=== PATIENT | male | born 1935 | race Caucasian/White ===

== ENCOUNTER 2018-02-17 21:37 | Emergency (ER) | payer MEDICARE ==
[~2018-02-17] VITALS: Ht 327.7 cm; Wt 89.4 kg
[~2018-02-17 21:37] MED LIST: CETIRIZINE HCL10 MG PO; CLONIDINE HCL0.1 MG PO; CO Q-10200 MG PO; FINASTERIDE5 MG PO; INSULIN SC; METFORMIN HCL500 MG PO; PIOGLITAZONE HC15 MG PO
--- OUTSIDE RECORDS SUMMARY | 2018-02-17 21:39 | XMS REPORT | Clinical Summary ---
Author Author [facility] Address Unknown Phone Unavailable Care Team Providers Care Futures Trader Name Role Phone Sharpless PCP Allergies No Known Allergies Medications End Date Status Medication Sig Dispensed Refills Start Date Active cloNIDine HCl (CATAPRES) Take 0.1 mg 0 0.1 MG tablet by mouth 2 (two) times daily. Active SITagliptin (JANUVIA) 25 Take 25 mg by 0 MG tablet mouth daily. Active amLODIPine (NORVASC) 10 Take 10 mg by 0 MG tablet mouth daily. Active tamsulosin (FLOMAX) 0.4 Take 0.4 mg 0 mg Cp24 24 hr capsule by mouth daily. Active losartan-hydroCHLOROthiaz Take 1 tablet 0 siria (HYZAAR) 50-12.5 mg by mouth per tablet daily. Active insulin 70/30, insulin Inject 10 0 NPH-insulin regular, Units (NOVOLIN 70/30) 100 subcutaneousl unit/mL (70-30) injection y 2 (two) times daily before meals. Active tamsulosin (FLOMAX) 0.4 Take 1 30 capsule 0 08/201 mg Cp24 24 hr capsule capsule (0.4 8 mg total) by mouth daily. 07/22/2018 Active finasteride (PROSCAR) 5 Take 1 tablet 30 tablet 0 07/22/201 mg tablet (5 mg total) 8 by mouth daily. 08/01/2017 docusate sodium (COLACE) Take 1 10 capsule 0 201 100 MG capsule capsule (100 8 mg total) by mouth 2 (two) times daily for 10 days. 08/01/2017 traMADol (ULTRAM) 50 mg Take 2 30 tablet 0 201 tablet tablets (100 8 mg total) by mouth every 6 (six) hours as needed for up to 10 days. Max Daily Amount: 400 mg Active Problems Problem Noted Date Renal mass 07/18/2017 Encounters Care Team Description Date Type Specialty Asia Baron MD 07/18/2017 Anesthesia Event Link, Toby Love MD ROBOTIC LAPAROSCOPY,NEPHRECTOMY 07/18/2017 Surgery Link, Toby Love MD 07/18/2017 [facility] General Internal Medicine - Encounter 07/22/2017 LinkToby MD 07/04/2017 Hospital Pre-Admission Testing Encounter Myranda Shea Kiley 06/18/2017 Orders Only Pre-Admission Testing after 02/16/2017 Social History Date Tobacco Use Types Packs/Day Years Used Quit: 1968 Former Smoker 1.5 13 Smokeless Tobacco: Never Used Alcohol Use Drinks/Week oz/Week Comments No Sex Assigned at Date Recorded Not on file Industry Job Start Date Occupation Not on file Not on file Not on file Travel End Travel History Travel Start No recent travel history available. Last Filed Vital Signs Time Taken Vital Sign Reading 07/22/2017 3:37 PM CDT Blood Pressure 172/78 07/22/2017 3:37 PM CDT Pulse 91 07/22/2017 3:37 PM CDT Temperature 36.7 C (98 F) 07/22/2017 3:37 PM CDT Respiratory Rate 18 07/22/2017 3:37 PM CDT Oxygen Saturation 92% - Inhaled Oxygen - Concentration 07/18/2017 6:14 AM CDT Weight 89.4 kg (197 lb 1.6 oz) 07/18/2017 6:14 AM CDT Height 175.3 cm (5' 9.02") 07/18/2017 6:14 AM CDT Body Mass Index 29.09 Plan of Treatment Not on file Procedures Comments Procedure Name Priority Date/Time Associated Diagnosis INTRAOPERATIVE PATH 09/03/2017 REPORT - SCAN 3:30 PM CDT POCT-GLUCOSE METER Routine 07/22/2017 2:19 PM CDT POCT-GLUCOSE METER Routine 07/22/2017 9:54 AM CDT XR ABDOMEN 1 VIEW STAT 07/22/2017 8:03 AM CDT CBC W/PLT COUNT & AUTO Routine 07/22/2017 DIFFERENTIAL 4:57 AM CDT CBC W/PLT COUNT & AUTO Routine 07/22/2017 DIFFERENTIAL 4:57 AM CDT BASIC METABOLIC PANEL (7) Routine 07/22/2017 4:57 AM CDT POCT-GLUCOSE METER Routine 07/21/2017 9:27 PM CDT POCT-GLUCOSE METER Routine 07/21/2017 5:46 PM CDT POCT-GLUCOSE METER Routine 07/21/2017 11:45 AM CDT POCT-GLUCOSE METER Routine 07/21/2017 7:05 AM CDT XR CHEST 1 VIEW STAT 07/21/2017 PORTABLE/BEDSIDE 5:27 AM CDT CBC W/PLT COUNT & AUTO Routine 07/21/2017 DIFFERENTIAL 4:35 AM CDT CBC W/PLT COUNT & AUTO Routine 07/21/2017 DIFFERENTIAL 4:35 AM CDT BASIC METABOLIC PANEL (7) Routine 07/21/2017 4:35 AM CDT POCT-GLUCOSE METER Routine 07/20/2017 9:01 PM CDT POCT-GLUCOSE METER Routine 07/20/2017 3:25 PM CDT POCT-GLUCOSE METER Routine 07/20/2017 11:45 AM CDT POCT-GLUCOSE METER Routine 07/20/2017 7:36 AM CDT CBC W/PLT COUNT & AUTO Routine 07/20/2017 DIFFERENTIAL 3:07 AM CDT CBC W/PLT COUNT & AUTO Routine 07/20/2017 DIFFERENTIAL 3:07 AM CDT BASIC METABOLIC PANEL (7) Routine 07/20/2017 3:07 AM CDT POCT-GLUCOSE METER Routine 07/19/2017 9:08 PM CDT POCT-GLUCOSE METER Routine 07/19/2017 5:20 PM CDT BASIC METABOLIC PANEL (7) Routine 07/19/2017 3:27 PM CDT POCT-GLUCOSE METER Routine 07/19/2017 11:52 AM CDT POCT-GLUCOSE METER Routine 07/19/2017 8:10 AM CDT CBC W/PLT COUNT & AUTO Routine 07/19/2017 DIFFERENTIAL 5:04 AM CDT CBC W/PLT COUNT & AUTO Routine 07/19/2017 DIFFERENTIAL 5:04 AM CDT BASIC METABOLIC PANEL (7) Routine 07/19/2017 5:04 AM CDT POCT-GLUCOSE METER Routine 07/18/2017 8:54 PM CDT POCT-GLUCOSE METER Routine 07/18/2017 5:04 PM CDT HEMOGLOBIN AND HEMATOCRIT Routine 07/18/2017 12:03 PM CDT BASIC METABOLIC PANEL (7) Routine 07/18/2017 12:03 PM CDT POCT-GLUCOSE METER Routine 07/18/2017 12:01 PM CDT GLUCOSE-STAT LAB STAT 07/18/2017 10:53 AM CDT TISSUE EXAM AP Routine 07/18/2017 10:37 AM CDT GLUCOSE-STAT LAB STAT 07/18/2017 9:36 AM CDT BLOOD GAS, ARTERIAL STAT 07/18/2017 8:26 AM CDT CALCIUM, IONIZED STAT 07/18/2017 8:26 AM CDT HGB/HCT (H&H) - STAT LAB STAT 07/18/2017 8:26 AM CDT GLUCOSE-STAT LAB STAT 07/18/2017 8:26 AM CDT POTASSIUM-STAT LAB STAT 07/18/2017 8:26 AM CDT SODIUM NA-STAT LAB STAT 07/18/2017 8:26 AM CDT PROCEDURE W/ DAVINCI 07/18/2017 Right renal mass 7:30 AM CDT Special Needs (DAVINCI) ROBOTIC 07/18/2017 Right renal mass LAPAROSCOPY,NEPHRECTOMY 7:30 AM CDT Special Needs (DAVINCI) POCT-GLUCOSE METER Routine 07/18/2017 6:23 AM CDT TRANSFUSION SERVICE 07/05/2017 REPORT - SCAN 5:44 PM CDT CBC W/PLT COUNT & AUTO Routine 07/04/2017 DIFFERENTIAL 11:37 AM CDT TYPE AND SCREEN, Routine 07/04/2017 AUTOMATED 11:37 AM CDT APTT Routine 07/04/2017 11:37 AM CDT PROTHROMBIN TIME/INR Routine 07/04/2017 11:37 AM CDT COMPREHENSIVE METABOLIC Routine 07/04/2017 PANEL 11:37 AM CDT CBC W/PLT COUNT & AUTO Routine 07/04/2017 DIFFERENTIAL 11:37 AM CDT URINALYSIS W/ MICROSCOPIC Routine 07/04/2017 11:37 AM CDT URINE CULTURE Routine 07/04/2017 11:37 AM CDT after 02/16/2017 Results * INTRAOPERATIVE PATH REPORT - SCAN (09/03/2017 3:30 PM CDT) Narrative Performed At * POC-Glucose meter (07/22/2017 2:19 PM CDT) Only the most recent of 18 results within the time period is included. POC-Glucose Meter 148 (H)Comment: TESTED AT 70 - 110 mg/dL [facility] [address] [facility] [id number] Specimen Blood Performing Organization Address City/State/Zipcode Phone Number [facility] [address], [place] [id number] [facility] * XR abdomen / KUB 1 view (07/22/2017 8:03 AM CDT) Narrative Performed At FINAL REPORT [facility] Abdomen 3 views supine 07/22/2017 8:20 AM CLINICAL INDICATION: abdominal distension COMPARISON: None available IMPRESSION: There is a substantial amount of stool in the proximal and transverse colon, with scattered loops of air-filled distal small bowel. Findings may reflect fecal impaction. The lung bases are well aerated. No abnormal calcifications are seen in the region of the gallbladder or kidneys. There are no acute-appearing skeletal abnormalities. Signed: Song Villalobos MD Report Verified Date/Time:07/22/2017 08:21:07 Reading Location: [facility] Radiology Reading Room Procedure Note Interface, External Ris In - 07/22/2017 8:27 AM CDT FINAL REPORT Abdomen 3 views supine 07/22/2017 8:20 AM CLINICAL INDICATION: abdominal distension COMPARISON: None available IMPRESSION: There is a substantial amount of stool in the proximal and transverse colon, with scattered loops of air-filled distal small bowel. Findings may reflect fecal impaction. The lung bases are well aerated. No abnormal calcifications are seen in the region of the gallbladder or kidneys. There are no acute-appearing skeletal abnormalities. Signed: Song Villalobos MD Report Verified Date/Time: 07/22/2017 08:21:07 Reading Location: [facility] Radiology Reading Room Performing Organization Address City/State/Zipcode Phone Number [facility] * CBC with platelet count + automated diff (07/22/2017 4:57 AM CDT) Only the most recent of 5 results within the time period is included. WBC 10.9 (H) 3.5 - 10.5 K/L [facility] RBC 4.43 (L) 4.63 - 6.08 M/L [facility] Hemoglobin 13.4 (L) 13.7 - 17.5 GM/DL [facility] Hematocrit 40.5 40.1 - 51.0 % [facility] MCV 91.4 79.0 - 92.2 fL [facility] MCH 30.2 25.7 - 32.2 pg [facility] MCHC 33.1 32.3 - 36.5 GM/DL [facility] RDW 12.9 11.6 - 14.4 % [facility] Platelets 231 150 - 450 K/CU MM [facility] MPV 11.5 9.4 - 12.4 fL [facility] nRBC 0 0 - 0 /100 WBC [facility] % Neutros 79 % [facility] % Lymphs 9 % [facility] % Monos 9 % [facility] % Eos 2 % [facility] % Baso 0 % [facility] # Neutros 8.57 (H) 1.78 - 5.38 K/L [facility] # Lymphs 0.99 (L) 1.32 - 3.57 K/L [facility] # Monos 0.97 (H) 0.30 - 0.82 K/L [facility] # Eos 0.19 0.04 - 0.54 K/L [facility] # Baso 0.02 0.01 - 0.08 K/L [facility] Immature 1 0 - 1 % [facility] Granulocytes-Relative [facility] Specimen Blood - Arm, Right Performing Organization Address City/State/Zipcode Phone Number [facility] [address] [place] [address] [facility] * Basic Metabolic Panel (07/22/2017 4:57 AM CDT) Only the most recent of 6 results within the time period is included. Sodium 130 (L) 136 - 145 meq/L [facility] Potassium 4.9 3.5 - 5.1 meq/L [facility] Chloride 96 (L) 98 - 107 meq/L [facility] CO2 22 22 - 29 meq/L [facility] BUN 32 (H) 7 - 21 mg/dL [facility] Creatinine 1.46 (H) 0.57 - 1.25 mg/dL [facility] Glucose 146 (H) 70 - 105 mg/dL [facility] Calcium 8.6 8.4 - 10.2 mg/dL [facility] EGFR 46Comment: ESTIMATED GFR IS mL/min/1.73 sq m [facility] NOT ACCURATE CREATININE [facility] CLEARANCE IN PREDICTING GLOMERULAR FILTRATION RATE. ESTIMATED GFR IS NOT APPLICABLE FOR DIALYSIS PATIENTS. Specimen Blood - Arm, Right Performing Organization Address City/State/Zipcode Phone Number [facility] [address] [place] [address] [phone] [place] [address] * XR chest 1 view portable / bedside (07/21/2017 5:27 AM CDT) Narrative Performed At FINAL REPORT [facility] RAD, CHEST, 1 VIEW, NON DEPT INDICATION: desaturation COMPARISON: None FINDINGS: Portable frontal view of the chest. IMPRESSION: Support Lines: None. Lungs and pleura: Subsegmental atelectasis bilaterally. Developing consolidation noted in the left base may reflect pneumonia. No pneumothorax. Heart and mediastinum: Unremarkable mediastinal contours. Additional findings: None. Signed: JR Kal, Edgar GARBER Report Verified Date/Time:07/21/2017 05:40:11 Reading Location: [facility] C013Y CT Body Reading Room Procedure Note Interface, External Ris In - 07/21/2017 5:42 AM CDT FINAL REPORT RAD, CHEST, 1 VIEW, NON DEPT INDICATION: desaturation COMPARISON: None FINDINGS: Portable frontal view of the chest. IMPRESSION: Support Lines: None. Lungs and pleura: Subsegmental atelectasis bilaterally. Developing consolidation noted in the left base may reflect pneumonia. No pneumothorax. Heart and mediastinum: Unremarkable mediastinal contours. Additional findings: None. Signed: JR Bowden Robert MD Report Verified Date/Time: 07/21/2017 05:40:11 Reading Location: [facility] B1 C013Y CT Body Reading Room Performing Organization Address City/[facility] Phone Number [facility] * Hemoglobin and hematocrit (07/18/2017 12:03 PM CDT) Hemoglobin 13.2 (L) 13.7 - 17.5 GM/DL [facility] Hematocrit 40.9 40.1 - 51.0 % [facility] Specimen Blood Performing Organization Address [facility] Phone Number [place] [phone] [place] [address] * Glucose-Stat Lab (07/18/2017 10:53 AM CDT) Only the most recent of 3 results within the time period is included. Glucose 177 (H) 70 - 110 mg/dL [facility] Specimen Blood, Arterial Performing Organization Address [facility] Phone Number [address] [address] [facility] * Tissue Exam (07/18/2017 10:37 AM CDT) Case Report Surgical Pathology [facility] Case: [id number] Authorizing Provider:Toby Florian MD Collected: 07/18/2017 1037 Ordering Location: [facility] PERIOPERATIVE Received: 07/18/2017 1050 SERVICES Pathologist: Arlen Baer MD Specimen:Mass, Right Kidney Mass; Show and Tell DIAGNOSIS KIDNEY, RIGHT, [facility] ROBOTIC-ASSISTED [facility] ADRENAL-SPARING LAPAROSCOPIC RADICAL NEPHRECTOMY: - CLEAR CELL RENAL CELL CARCINOMA, 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 Powers agrees with [facility] perirenal sinus fat invasion. [facility] SYNOPTIC REPORT KIDNEY: Nephrectomy(Kidney [facility] Res - All Specimens) [facility] SPECIMEN Procedure:Adrenal-spar ing radical nephrectomy Specimen Laterality:Right TUMOR Tumor Site:Middle Histologic Type:Clear cell renal cell carcinoma Histologic Grade (WHO / ISUP Grade):G3: Nucleoli conspicuous and eosinophilic at 100x magnification Tumor Size:Greatest dimension in Centimeters (cm): 4.8 Centimeters (cm) Additional Dimension in Centimeters (cm):3.9 Centimeters (cm) Additional Dimension in Centimeters (cm):2.6 Centimeters (cm) Tumor Focality:Unifocal Tumor Extension:Tumor extension into renal sinus Sarcomatoid Features:Not identified Rhabdoid Features:Not identified Tumor Necrosis:Not identified Lymphovascular Invasion:Not identified MARGINS Margins:Uninvolved by invasive carcinoma LYMPH NODES Regional Lymph Nodes:No lymph nodes submitted or found PATHOLOGIC STAGE CLASSIFICATION (pTNM, AJCC 8th Edition) Primary Tumor (pT):pT3a Regional Lymph Nodes (pN):pNX ADDITIONAL FINDINGS Pathologic Findings in Nonneoplastic Kidney:Glomerular disease: focal global glomerulosclerosis Pathologic Findings in Nonneoplastic Kidney:Tubulointerstit ial disease: chronic tubulointerstitial inflammation and atrophy Pathologic Findings in Nonneoplastic Kidney:Vascular disease: mild to moderate arteriosclerosis CPT Code(s) 03126 [facility] SPECIMEN SOURCE Right kidney, description [facility] right kidney mass [facility] GROSS DESCRIPTION The specimen is received in [facility] one part. Received fresh for [facility] show and tell labeled with the patient's information and "mass" is a 27.5 x 15 x 9 cm radical nephrectomy with an 8 cm in length ureter. The kidney itself measures 10 x 6 x 5 cm. There is abundant adipose tissue attached measuring 12 x 11.5 x 5 cm. The kidney is bivalved to show a 4.8 x 3.9 x 2.6 cm, encapsulated, lobulated, pedroza-yellow mass with focal hemorrhage located at the mid pole and pushing the ureter. The tumor grossly seems to be invading the renal sinus tract. It does not invade the ureter. Grossly the tumor does not invade the renal capsule or the perinephric fat. No adrenal gland is identified. Section code: A1, vascular and ureteral margins; A2-A4, tumor involving renal sinus; A5, tumor with ureter; A6, A7, entry level sales representative section of the tumor; A8, A9, contiguous section of tumor to the renal cortex and capsule; A10, A11, contiguous section, tumor towards renal cortex and capsule; A12, tumor with adjacent parenchyma; A13, A14, entry level sales representative section of the perinephric fat with Gerota's fascia inked black. AG/ew MICROSCOPIC DESCRIPTION Performed. [facility] Specimen Tissue - Mass Performing Organization Address [facility] Phone Number [address] * Potassium-Stat Lab (07/18/2017 8:26 AM CDT) Potassium 3.5 (L) 3.6 - 5.5 meq/L [facility] Specimen Blood, Arterial Performing Organization Address City/[facility]/Zipcode Phone Number [address] * Sodium Na-Stat Lab (07/18/2017 8:26 AM CDT) Sodium 137 135 - 148 meq/L [facility] Specimen Blood, Arterial Performing Organization Address [facility] Phone Number [address] * HGB/HCT (H&H)-Stat Lab (07/18/2017 8:26 AM CDT) Hemoglobin 13.0 13.0 - 16.8 g/dL [facility] Hematocrit 38.0 (L) 40.0 - 50.0 % [facility] Specimen Blood, Arterial Performing Organization Address City/[facility] Phone Number [address] [address] [phone] * Calcium, Ionized (07/18/2017 8:26 AM CDT) Calcium, Ion 1.03 (L) 1.12 - 1.27 mmol/L [facility] pH, Blood 7.38 [facility] Specimen Blood Performing Organization Address [facility] Phone Number [phone] [place] [address] * Blood gas, arterial (07/18/2017 8:26 AM CDT) pH, Arterial 7.41 7.35 - 7.45 [facility] pCO2, Arterial 38 35 - 45 mmHg [facility] pO2, Arterial 424 (H) 80 - 90 mmHg [facility] O2 Sat, Arterial 99.8 (H) 96.0 - 97.0 % [facility] HCO3, Arterial 24 21 - 29 mmol/L [facility] Base Excess, Arterial -1.1 -2.0 - 3.0 mmol/L [facility] Patient Temperature 35.3 C [facility] FIO2 95.0 % [facility] Specimen Blood, Arterial Performing Organization Address City/[facility] Phone Number [address] [address] [phone] [address] * TRANSFUSION SERVICE REPORT - SCAN (07/05/2017 5:44 PM CDT) Narrative Performed At * Type and screen, automated (07/04/2017 11:37 AM CDT) ABO/RH AUTOMATED (BEAKER) O NEGATIVE [facility] Ab Scrn NEGATIVE [facility] Specimen Blood Performing Organization Address City/State/Zipcode Phone Number [facility] [address] [place] [address] [facility] [place] * Urinalysis w/ Microscopic (07/04/2017 11:37 AM CDT) Color, UA Light Yellow [facility] Clarity, UA Clear [facility] Specific [place], UA 1.009 1.001 - 1.035 [facility] pH, UA 6.0 5.0 - 8.0 [facility] Protein, UA Negative Negative [facility] Glucose, UA 300 mg/dL (A) Negative [facility] Ketones, UA Negative Negative [facility] Bilirubin, UA Negative Negative [facility] Blood, UA Negative Negative [facility] Nitrite, UA Negative Negative [facility] Leukocytes, UA Negative Negative [facility] Urobilinogen, UA 0.2 0.2 - 1.0 mg/dL [facility] RBC, UA <1 /HPF [facility] WBC, UA 0 /HPF [facility] Squam Epithel, UA 1 /HPF [facility] Hyaline Casts, UA 4 /LPF [facility] Specimen Source [facility] Specimen Urine Performing Organization Address City/State/Zipcode Phone Number [facility] [address] [place] [address] MED[facility] * aPTT (07/04/2017 11:37 AM CDT) PTT 27.3 22.5 - 36.0 seconds [facility] Specimen Blood Performing Organization Address City/[facility]/Zipcode Phone Number [address] * Prothrombin time/INR (07/04/2017 11:37 AM CDT) Protime 14.1 11.7 - 14.7 seconds [facility] INR 1.1 <=5.9 [facility] Specimen Blood Narrative Performed At RECOMMENDED COUMADIN/WARFARIN INR THERAPY RANGES [facility] STANDARD DOSE: 2.0 - 3.0 Includes: PROPHYLAXIS for venous thrombosis, [facility] systemic embolization; TREATMENT for venous thrombosis and/or pulmonary embolus. HIGH RISK: Target INR is 2.5-3.5 for patients with mechanical heart valves. Performing Organization Address City/[facility] Phone Number [address] * Urine culture (07/04/2017 11:37 AM CDT) Result 50-59,000 col/mL skin sravani [facility] Specimen Urine - Urine, Unspecified Source Performing Organization Address City/[facility]/Zipcode Phone Number [address] * Comprehensive metabolic panel (07/04/2017 11:37 AM CDT) Protein, Total 7.5Comment: Specimen slightly 6.0 - 8.3 gm/dL [facility] Albumin 4.4Comment: Specimen slightly 3.5 - 5.0 g/dL [facility] Alkaline Phosphatase 115 40 - 150 U/L [facility] Total Bilirubin 0.5Comment: Specimen slightly 0.2 - 1.2 mg/dL [facility] Sodium 137 136 - 145 meq/L [facility] Potassium 5.0Comment: Specimen slightly 3.5 - 5.1 meq/L [facility] Chloride 101 98 - 107 meq/L [facility] CO2 26 22 - 29 meq/L [facility] BUN 20 7 - 21 mg/dL [facility] Creatinine 1.51 (H)Comment: Specimen 0.57 - 1.25 mg/dL [facility] slightly hemolyzed [facility] Glucose 214 (H) 70 - 105 mg/dL [facility] Calcium 9.6 8.4 - 10.2 mg/dL [facility] AST 23Comment: Specimen slightly 5 - 34 U/L [facility] ALT 23Comment: Specimen slightly 6 - 55 U/L [facility] EGFR 44Comment: ESTIMATED GFR IS mL/min/1.73 sq m [facility] NOT ACCURATE CREATININE [facility] CLEARANCE IN PREDICTING GLOMERULAR FILTRATION RATE. ESTIMATED GFR IS NOT APPLICABLE FOR DIALYSIS PATIENTS. Specimen Blood Performing Organization Address City/State/Zipcode Phone Number [address] [address] [facility] after 02/16/2017 Insurance Payer Benefit Subscriber ID Type Phone Address Plan / Group [employer] - MEDICARE MGD HUMANA xxxxxxxxx [facility] MEDICARE Contracted ADV Advance Directives For more information, please contact: [address] [address] Date Inactivated Comments Code Status Date Activated 07/22/2017 7:29 PM Full Code 07/18/2017 2:45 PM This code status was determined by: Patient
--- OUTSIDE RECORDS SUMMARY | 2018-02-17 21:39 | XMS REPORT ---
Author Author [facility] Address Unknown Phone Unavailable Care Team Providers Care Trimmer Meat Name Role Phone PRADEEP FLORIAN Unavailable Unavailable Omari DEUTSCH Unavailable Unavailable Problems This patient has no known problems. Allergies, Adverse Reactions, Alerts This patient has no known allergies or adverse reactions. Medications This patient has no known medications. 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 Powers agrees with perirenal sinus fat invasion.KIDNEY: Nephrectomy (Kidney Res - All Specimens)SPECIMEN Procedure: Adrenal-sparing radical nephrectomy Specimen Laterality: Right TUMOR Tumor Site: Middle Histologic Type: Clear cell renal cell carcinoma Histologic Grade (WHO / ISUP Grade): G3: Nucleoli conspicuous and eosinophilic at 100x magnification Tumor Size: Greatest dimension in Centimeters (cm): 4.8 Centimeters (cm) Additional Dimension in Centimeters (cm): 3.9 Centimeters (cm) Additional Dimension in Centimeters (cm): 2.6 Centimeters (cm) Tumor Focality: Unifocal Tumor Extension: Tumor extension into renal sinus Sarcomatoid Features: Not identified Rhabdoid Features: Not identified Tumor Necrosis: Not identified Lymphovascular Invasion: Not identified MARGINS Margins: Uninvolved by invasive carcinoma LYMPH NODES Regional Lymph Nodes: No lymph nodes submitted or found PATHOLOGIC STAGE CLASSIFICATION (pTNM, AJCC 8th Edition) Primary Tumor (pT): pT3a Regional Lymph Nodes (pN): pNX ADDITIONAL FINDINGS Pathologic Findings in Nonneoplastic Kidney: Glomerular disease: focal global glomerulosclerosis Pathologic Findings in Nonneoplastic Kidney: Tubulointerstitial disease: chronic tubulointerstitial inflammation and atrophy Pathologic Findings in Nonneoplastic Kidney: Vascular disease: mild to moderate arteriosclerosis 49075Gjfck kidney, description right kidney mass The specimen is received in one part. Received fresh for show and tell labeled with the patient's [...] the perinephric fat. No adrenal gland is identified.Section code: A1, vascular and ureteral margins; A2-A4, tumor involving renal sinus; A5, tumor with ureter; A6, A7, technology sales representative section of the tumor; A8, A9, contiguous section of tumor to the renal cortex and capsule; A10, A11, contiguous section, tumor towards renal cortex and capsule; A12, tumor with adjacent parenchyma; A13, A14, technology sales representative section of the perinephric fat with Gerota's fascia inked black. AG/ewPerformed. POCT-GLUCOSE METER 2017-07-22 14:20:00 POC-GLUCOSE METER (SHAMIKA) (test lite=3557) 148 mg/dL 70-[address] [facility] [address] [place] [address] POCT-GLUCOSE [id number] 09:55:00* Test Item Value Reference Range Comments POC-GLUCOSE METER (BEAKER) (test xube=9799) 173 mg/dL 70-[address] [facility] [address] [facility] [address] RAD, ABDOMEN/KUB, 1 VIEW [id number] 08:21:00Reason for exam:->abdominal distensionFINAL REPORT Abdomen 3 views supine 07/22/2017 8:20 [...] no acute-appearing skeletal abnormalities. Signed: Song Villalobos MDReport Verified Date/Time: 07/22/2017 08:21:07 Reading Location: [facility] Radiology Reading Room C METABOLIC [id number] 05:57:00* Test Item Value Reference Range Comments SODIUM (BEAKER) (test kqeo=644) 130 meq/L 136-145 POTASSIUM (BEAKER) (test tyma=604) 4.9 meq/L 3.5-5.1 CHLORIDE (BEAKER) (test kpkn=752) 96 meq/L 98-107 CO2 (BEAKER) (test fmpl=079) 22 meq/L 22-29 BLOOD UREA NITROGEN (BEAKER) (test ohln=349) 32 mg/dL 7-21 CREATININE (BEAKER) (test ebso=540) 1.46 mg/dL 0.57-1.25 GLUCOSE RANDOM (BEAKER) (test bivl=505) 146 mg/dL 70-105 CALCIUM (BEAKER) (test fizr=232) 8.6 mg/dL 8.4-10.2 EGFR (BEAKER) (test khdg=0752) 46 mL/min/1.73 sq m ESTIMATED GFR IS NOT ACCURATE CREATININE CLEARANCE IN PREDICTING GLOMERULAR FILTRATION RATE. ESTIMATED GFR IS NOT APPLICABLE FOR DIALYSIS PATIENTS. CBC W/PLT COUNT & AUTO [id number] 05:55:00* Test Item Value Reference Range Comments WHITE BLOOD CELL COUNT (BEAKER) (test dlpk=274) 10.9 K/ L 3.5-10.5 RED BLOOD CELL COUNT (BEAKER) (test savd=702) 4.43 M/ L 4.63-6.08 HEMOGLOBIN (BEAKER) (test ywom=463) 13.4 GM/DL 13.7-17.5 HEMATOCRIT (BEAKER) (test otne=329) 40.5 % 40.1-51.0 MEAN CORPUSCULAR VOLUME (BEAKER) (test fgct=079) 91.4 fL 79.0-92.2 MEAN CORPUSCULAR HEMOGLOBIN (BEAKER) (test chyc=297) 30.2 pg 25.7-32.2 MEAN CORPUSCULAR HEMOGLOBIN CONC (BEAKER) (test cfqn=984) 33.1 GM/DL 32.3-36.5 RED CELL DISTRIBUTION WIDTH (BEAKER) (test ejsk=260) 12.9 % 11.6-14.4 PLATELET COUNT (BEAKER) (test juuo=786) 231 K/CU MM 150-450 MEAN PLATELET VOLUME (BEAKER) (test nasd=733) 11.5 fL 9.4-12.4 NUCLEATED RED BLOOD CELLS (BEAKER) (test ogwz=738) 0 /100 WBC 0-0 NEUTROPHILS RELATIVE PERCENT (BEAKER) (test imkk=242) 79 % LYMPHOCYTES RELATIVE PERCENT (BEAKER) (test lpxm=993) 9 % MONOCYTES RELATIVE PERCENT (BEAKER) (test zpvm=375) 9 % EOSINOPHILS RELATIVE PERCENT (BEAKER) (test fofv=461) 2 % BASOPHILS RELATIVE PERCENT (BEAKER) (test dhoa=811) 0 % NEUTROPHILS ABSOLUTE COUNT (BEAKER) (test cyaw=684) 8.57 K/ L 1.78-5.38 LYMPHOCYTES ABSOLUTE COUNT (BEAKER) (test xtcm=705) 0.99 K/ L 1.32-3.57 MONOCYTES ABSOLUTE COUNT (BEAKER) (test wpom=734) 0.97 K/ L 0.30-0.82 EOSINOPHILS ABSOLUTE COUNT (BEAKER) (test fbnc=783) 0.19 K/ L 0.04-0.54 BASOPHILS ABSOLUTE COUNT (BEAKER) (test euba=099) 0.02 K/ L 0.01-0.08 IMMATURE GRANULOCYTES-RELATIVE PERCENT (BEAKER) (test bmcd=8043) 1 % 0-1 POCT-GLUCOSE [id number] 21:29:00* Test Item Value Reference Range Comments POC-GLUCOSE METER (BEAKER) (test qvep=8121) 156 mg/dL 70-110 TESTED AT [place] [id number] [facility] [address] POCT-GLUCOSE [id number] 17:48:00* Test Item Value Reference Range Comments POC-GLUCOSE METER (BEAKER) (test iill=4108) 127 mg/dL 70-110 TESTED AT [address] [address] POCT-GLUCOSE [id number] 11:46:00* Test Item Value Reference Range Comments POC-GLUCOSE METER (BEAKER) (test bfgh=4969) 198 mg/dL 70-110 TESTED AT [address] [address] POCT-GLUCOSE [id number] 08:24:00* Test Item Value Reference Range Comments POC-GLUCOSE METER (BEAKER) (test hhqp=7702) 169 mg/dL 70-110 TESTED AT [address] [address] RAD, CHEST, 1 VIEW, NON [id number] 05:40:00Reason for exam:-> desaturationShould this be performed at the bedside?->YesFINAL REPORT RAD, CHEST, 1 VIEW, NON DEPT INDICATION: desaturation COMPARISON: None FINDINGS: Portable frontal view of the chest. IMPRESSION: Support Lines: None. Lungs and pleura: Subsegmental atelectasis bilaterally. Developing consolidation noted in the left base may reflect pneumonia. No p neumothorax.Heart and mediastinum: Unremarkable mediastinal contours.Additional findings: None. Signed: JR Bowden Robert MDReport Verified Date/Time: 0 07/21/2017 05:40:11 Reading Location: [facility] B1 C013Y CT Body Reading Room Electr onically signed by: EDGAR BOWDEN on 07/21/2017 05:40 AM BASIC METABOLIC [id number] 05:06:00* Test Item Value Reference Range Comments SODIUM (BEAKER) (test vgdr=611) 131 meq/L 136-145 POTASSIUM (BEAKER) (test vxgs=187) 4.8 meq/L 3.5-5.1 CHLORIDE (BEAKER) (test swjc=859) 98 meq/L 98-107 CO2 (BEAKER) (test rzsz=585) 24 meq/L 22-29 BLOOD UREA NITROGEN (BEAKER) (test rumj=674) 26 mg/dL 7-21 CREATININE (BEAKER) (test vhmn=480) 1.47 mg/dL 0.57-1.25 GLUCOSE RANDOM (BEAKER) (test qnqt=953) 155 mg/dL 70-105 CALCIUM (BEAKER) (test lpvp=747) 8.5 mg/dL 8.4-10.2 EGFR (BEAKER) (test gfnm=2029) 46 mL/min/1.73 sq m ESTIMATED GFR IS NOT ACCURATE CREATININE CLEARANCE IN PREDICTING GLOMERULAR FILTRATION RATE. ESTIMATED GFR IS NOT APPLICABLE FOR DIALYSIS PATIENTS. CBC W/PLT COUNT & AUTO [id number] 04:50:00* Test Item Value Reference Range Comments WHITE BLOOD CELL COUNT (BEAKER) (test azgs=828) 12.6 K/ L 3.5-10.5 RED BLOOD CELL COUNT (BEAKER) (test lerh=520) 4.42 M/ L 4.63-6.08 HEMOGLOBIN (BEAKER) (test corm=252) 13.3 GM/DL 13.7-17.5 HEMATOCRIT (BEAKER) (test kufx=167) 41.5 % 40.1-51.0 MEAN CORPUSCULAR VOLUME (BEAKER) (test vugl=119) 93.9 fL 79.0-92.2 MEAN CORPUSCULAR HEMOGLOBIN (BEAKER) (test kyri=435) 30.1 pg 25.7-32.2 MEAN CORPUSCULAR HEMOGLOBIN CONC (BEAKER) (test jfkd=788) 32.0 GM/DL 32.3-36.5 RED CELL DISTRIBUTION WIDTH (BEAKER) (test iwix=633) 12.9 % 11.6-14.4 PLATELET COUNT (BEAKER) (test zief=184) 201 K/CU MM 150-450 MEAN PLATELET VOLUME (BEAKER) (test huwg=483) 10.9 fL 9.4-12.4 NUCLEATED RED BLOOD CELLS (BEAKER) (test lmlk=505) 0 /100 WBC 0-0 NEUTROPHILS RELATIVE PERCENT (BEAKER) (test zxat=378) 80 % LYMPHOCYTES RELATIVE PERCENT (BEAKER) (test fdlm=530) 7 % MONOCYTES RELATIVE PERCENT (BEAKER) (test mzsf=218) 10 % EOSINOPHILS RELATIVE PERCENT (BEAKER) (test fxwq=993) 2 % BASOPHILS RELATIVE PERCENT (BEAKER) (test haen=686) 0 % NEUTROPHILS ABSOLUTE COUNT (BEAKER) (test sczo=004) 10.09 K/ L 1.78-5.38 LYMPHOCYTES ABSOLUTE COUNT (BEAKER) (test qpca=274) 0.92 K/ L 1.32-3.57 MONOCYTES ABSOLUTE COUNT (BEAKER) (test raqv=070) 1.24 K/ L 0.30-0.82 EOSINOPHILS ABSOLUTE COUNT (BEAKER) (test wguj=415) 0.21 K/ L 0.04-0.54 BASOPHILS ABSOLUTE COUNT (BEAKER) (test oimq=879) 0.02 K/ L 0.01-0.08 IMMATURE GRANULOCYTES-RELATIVE PERCENT (BEAKER) (test dolk=3697) 1 % 0-1 POCT-GLUCOSE [id number] 21:15:00* Test Item Value Reference Range Comments POC-GLUCOSE METER (BEAKER) (test qwvt=4555) 174 mg/dL 70-110 TESTED AT [place] [id number] POCT-GLUCOSE [id number] 15:50:00* Test Item Value Reference Range Comments POC-GLUCOSE METER (BEAKER) (test nhzc=1896) 218 mg/dL 70-110 TESTED AT [address] [address] POCT-GLUCOSE [id number] 12:39:00* Test Item Value Reference Range Comments POC-GLUCOSE METER (BEAKER) (test efkz=4837) 184 mg/dL 70-110 TESTED AT [address] [address] POCT-GLUCOSE [id number] 08:22:00* Test Item Value Reference Range Comments POC-GLUCOSE METER (BEAKER) (test vwjr=7261) 180 mg/dL 70-110 TESTED AT [address] [address] BASIC METABOLIC [id number] 05:35:00* Test Item Value Reference Range Comments SODIUM (BEAKER) (test uzug=899) 133 meq/L 136-145 POTASSIUM (BEAKER) (test vuom=771) 5.0 meq/L 3.5-5.1 CHLORIDE (BEAKER) (test zlxv=639) 103 meq/L 98-107 CO2 (BEAKER) (test rkkp=110) 20 meq/L 22-29 BLOOD UREA NITROGEN (BEAKER) (test opjn=479) 29 mg/dL 7-21 CREATININE (BEAKER) (test dllo=331) 1.65 mg/dL 0.57-1.25 GLUCOSE RANDOM (BEAKER) (test nays=637) 179 mg/dL 70-105 CALCIUM (BEAKER) (test sjlc=440) 8.2 mg/dL 8.4-10.2 EGFR (BEAKER) (test zipe=9296) 40 mL/min/1.73 sq m ESTIMATED GFR IS NOT ACCURATE CREATININE CLEARANCE IN PREDICTING GLOMERULAR FILTRATION RATE. ESTIMATED GFR IS NOT APPLICABLE FOR DIALYSIS PATIENTS. CBC W/PLT COUNT & AUTO [id number] 05:33:00* Test Item Value Reference Range Comments WHITE BLOOD CELL COUNT (BEAKER) (test rimq=110) 13.9 K/ L 3.5-10.5 RED BLOOD CELL COUNT (BEAKER) (test fqem=223) 4.37 M/ L 4.63-6.08 HEMOGLOBIN (BEAKER) (test sefg=638) 13.3 GM/DL 13.7-17.5 HEMATOCRIT (BEAKER) (test mzvs=567) 41.5 % 40.1-51.0 MEAN CORPUSCULAR VOLUME (BEAKER) (test jsnv=321) 95.0 fL 79.0-92.2 MEAN CORPUSCULAR HEMOGLOBIN (BEAKER) (test utmz=726) 30.4 pg 25.7-32.2 MEAN CORPUSCULAR HEMOGLOBIN CONC (BEAKER) (test efov=657) 32.0 GM/DL 32.3-36.5 RED CELL DISTRIBUTION WIDTH (BEAKER) (test lffd=617) 13.3 % 11.6-14.4 PLATELET COUNT (BEAKER) (test aebz=034) 220 K/CU MM 150-450 MEAN PLATELET VOLUME (BEAKER) (test fwtj=975) 11.7 fL 9.4-12.4 NUCLEATED RED BLOOD CELLS (BEAKER) (test csqs=137) 0 /100 WBC 0-0 NEUTROPHILS RELATIVE PERCENT (BEAKER) (test ywca=536) 79 % LYMPHOCYTES RELATIVE PERCENT (BEAKER) (test xwtr=912) 9 % MONOCYTES RELATIVE PERCENT (BEAKER) (test lrlk=019) 10 % EOSINOPHILS RELATIVE PERCENT (BEAKER) (test eijw=090) 1 % BASOPHILS RELATIVE PERCENT (BEAKER) (test ktol=779) 0 % NEUTROPHILS ABSOLUTE COUNT (BEAKER) (test bzal=618) 10.98 K/ L 1.78-5.38 LYMPHOCYTES ABSOLUTE COUNT (BEAKER) (test zcra=806) 1.23 K/ L 1.32-3.57 MONOCYTES ABSOLUTE COUNT (BEAKER) (test kwuw=534) 1.35 K/ L 0.30-0.82 EOSINOPHILS ABSOLUTE COUNT (BEAKER) (test azfe=453) 0.18 K/ L 0.04-0.54 BASOPHILS ABSOLUTE COUNT (BEAKER) (test kmnk=897) 0.02 K/ L 0.01-0.08 IMMATURE GRANULOCYTES-RELATIVE PERCENT (BEAKER) (test cqnt=8505) 1 % 0-1 POCT-GLUCOSE [id number] 21:31:00* Test Item Value Reference Range Comments POC-GLUCOSE METER (BEAKER) (test qqrt=8869) 209 mg/dL 70-110 TESTED AT [address] [address] POCT-GLUCOSE [id number] 17:22:00* Test Item Value Reference Range Comments POC-GLUCOSE METER (BEAKER) (test alpl=7321) 183 mg/dL 70-110 TESTED AT [address] [address] BASIC METABOLIC [id number] 15:56:00* Test Item Value Reference Range Comments SODIUM (BEAKER) (test xiyd=866) 134 meq/L 136-145 POTASSIUM (BEAKER) (test wlfr=756) 4.7 meq/L 3.5-5.1 CHLORIDE (BEAKER) (test sbdt=940) 104 meq/L 98-107 CO2 (BEAKER) (test qzwa=067) 22 meq/L 22-29 BLOOD UREA NITROGEN (BEAKER) (test nqav=287) 29 mg/dL 7-21 CREATININE (BEAKER) (test tmqx=338) 1.79 mg/dL 0.57-1.25 GLUCOSE RANDOM (BEAKER) (test amme=490) 205 mg/dL 70-105 CALCIUM (BEAKER) (test orhi=953) 8.2 mg/dL 8.4-10.2 EGFR (BEAKER) (test iojj=4809) 37 mL/min/1.73 sq m ESTIMATED GFR IS NOT ACCURATE CREATININE CLEARANCE IN PREDICTING GLOMERULAR FILTRATION RATE. ESTIMATED GFR IS NOT APPLICABLE FOR DIALYSIS PATIENTS. POCT-GLUCOSE [id number] 11:55:00* Test Item Value Reference Range Comments POC-GLUCOSE METER (BEAKER) (test dtoh=6874) 230 mg/dL 70-[address] [facility] [address] [facility] [address] POCT-GLUCOSE [id number] 08:15:00* Test Item Value Reference Range Comments POC-GLUCOSE METER (BEAKER) (test tqdr=9030) 265 mg/dL 70-[address] [facility] [address] [facility] [address] BASIC METABOLIC [id number] 07:08:00* Test Item Value Reference Range Comments SODIUM (BEAKER) (test tkfr=626) 133 meq/L 136-145 POTASSIUM (BEAKER) (test zaer=621) 5.8 meq/L 3.5-5.1 CHLORIDE (BEAKER) (test mhee=910) 107 meq/L 98-107 CO2 (BEAKER) (test tcfy=732) 13 meq/L 22-29 BLOOD UREA NITROGEN (BEAKER) (test pzhp=991) 27 mg/dL 7-21 CREATININE (BEAKER) (test wcea=349) 1.80 mg/dL 0.57-1.25 GLUCOSE RANDOM (BEAKER) (test zinz=124) 255 mg/dL 70-105 CALCIUM (BEAKER) (test hnfq=613) 8.1 mg/dL 8.4-10.2 EGFR (BEAKER) (test acoh=1078) 36 mL/min/1.73 sq m ESTIMATED GFR IS NOT ACCURATE CREATININE CLEARANCE IN PREDICTING GLOMERULAR FILTRATION RATE. ESTIMATED GFR IS NOT APPLICABLE FOR DIALYSIS PATIENTS. Before arterial line is [facility] COUNT & AUTO DIFFERENTIAL 2017-07-19 06:52:00* Test Item Value Reference Range Comments WHITE BLOOD CELL COUNT (BEAKER) (test rsqt=770) 13.6 K/ L 3.5-10.5 RED BLOOD CELL COUNT (BEAKER) (test mhvj=720) 4.55 M/ L 4.63-6.08 HEMOGLOBIN (BEAKER) (test pzfj=046) 13.8 GM/DL 13.7-17.5 HEMATOCRIT (BEAKER) (test wrpk=129) 43.4 % 40.1-51.0 MEAN CORPUSCULAR VOLUME (BEAKER) (test dfnq=866) 95.4 fL 79.0-92.2 MEAN CORPUSCULAR HEMOGLOBIN (BEAKER) (test kxxr=022) 30.3 pg 25.7-32.2 MEAN CORPUSCULAR HEMOGLOBIN CONC (BEAKER) (test vyju=120) 31.8 GM/DL 32.3-36.5 RED CELL DISTRIBUTION WIDTH (BEAKER) (test szwh=364) 13.2 % 11.6-14.4 PLATELET COUNT (BEAKER) (test bccz=069) 193 K/CU MM 150-450 MEAN PLATELET VOLUME (BEAKER) (test ghva=116) 11.1 fL 9.4-12.4 NUCLEATED RED BLOOD CELLS (BEAKER) (test nhwt=947) 0 /100 WBC 0-0 NEUTROPHILS RELATIVE PERCENT (BEAKER) (test gcin=196) 84 % LYMPHOCYTES RELATIVE PERCENT (BEAKER) (test hkyu=256) 7 % MONOCYTES RELATIVE PERCENT (BEAKER) (test rwqt=564) 8 % EOSINOPHILS RELATIVE PERCENT (BEAKER) (test iwsa=017) 0 % BASOPHILS RELATIVE PERCENT (BEAKER) (test ohfx=684) 0 % NEUTROPHILS ABSOLUTE COUNT (BEAKER) (test wkyk=717) 11.50 K/ L 1.78-5.38 LYMPHOCYTES ABSOLUTE COUNT (BEAKER) (test utpa=342) 0.88 K/ L 1.32-3.57 MONOCYTES ABSOLUTE COUNT (BEAKER) (test pord=636) 1.11 K/ L 0.30-0.82 EOSINOPHILS ABSOLUTE COUNT (BEAKER) (test favu=344) 0.01 K/ L 0.04-0.54 BASOPHILS ABSOLUTE COUNT (BEAKER) (test sjby=599) 0.01 K/ L 0.01-0.08 IMMATURE GRANULOCYTES-RELATIVE PERCENT (BEAKER) (test zcxs=1309) 1 % 0-1 POCT-GLUCOSE [id number] 21:06:00* Test Item Value Reference Range Comments POC-GLUCOSE METER (BEAKER) (test rhtl=0621) 256 mg/dL 70-[address] [facility] [address] [facility] [address] POCT-GLUCOSE [id number] 17:10:00* Test Item Value Reference Range Comments POC-GLUCOSE METER (BEAKER) (test gtgv=8551) 201 mg/dL 70-110 TESTED AT [address] [address] HEMOGLOBIN AND [id number] 12:43:00* Test Item Value Reference Range Comments HEMOGLOBIN (BEAKER) (test bftq=720) 13.2 GM/DL 13.7-17.5 HEMATOCRIT (BEAKER) (test kzkk=937) 40.9 % 40.1-51.0 BASIC METABOLIC [id number] 12:31:00* Test Item Value Reference Range Comments SODIUM (BEAKER) (test joso=599) 138 meq/L 136-145 POTASSIUM (BEAKER) (test edgd=076) 4.1 meq/L 3.5-5.1 CHLORIDE (BEAKER) (test rwuv=102) 108 meq/L 98-107 CO2 (BEAKER) (test apag=622) 20 meq/L 22-29 BLOOD UREA NITROGEN (BEAKER) (test xpoe=348) 28 mg/dL 7-21 CREATININE (BEAKER) (test kacq=219) 1.58 mg/dL 0.57-1.25 GLUCOSE RANDOM (BEAKER) (test kcab=426) 202 mg/dL 70-105 CALCIUM (BEAKER) (test ifyc=103) 8.2 mg/dL 8.4-10.2 EGFR (BEAKER) (test vawf=3203) 42 mL/min/1.73 sq m ESTIMATED GFR IS NOT ACCURATE CREATININE CLEARANCE IN PREDICTING GLOMERULAR FILTRATION RATE. ESTIMATED GFR IS NOT APPLICABLE FOR DIALYSIS PATIENTS. Upon arrival to PACUPOCT-GLUCOSE [id number] 12:05:00* Test Item Value Reference Range Comments POC-GLUCOSE METER (BEAKER) (test gpsk=1426) 204 mg/dL 70-110 TESTED AT [address] [address] GLUCOSE-STAT [id number] 11:00:00* Test Item Value Reference Range Comments GLUCOSE RANDOM (BEAKER) (test osgh=850) 177 mg/dL 70-110 GLUCOSE-STAT [id number] 09:55:00* Test Item Value Reference Range Comments GLUCOSE RANDOM (BEAKER) (test eixc=129) 114 mg/dL 70-110 HGB/HCT (H&H) - STAT [id number] 08:46:00* Test Item Value Reference Range Comments HEMOGLOBIN (BEAKER) (test zgrt=554) 13.0 g/dL 13.0-16.8 HEMATOCRIT (BEAKER) (test tnew=247) 38.0 % 40.0-50.0 CALCIUM, [id number] 08:46:00* Test Item Value Reference Range Comments CALCIUM IONIZED (BEAKER) (test xyhr=473) 1.03 mmol/L 1.12-1.27 PH, BLOOD (BEAKER) (test eksr=4894) 7.38 BLOOD GAS, [id number] 08:43:00* Test Item Value Reference Range Comments PH ARTERIAL (BEAKER) (test ixbe=871) 7.41 7.35-7.45 PCO2 ARTERIAL (BEAKER) (test nqxz=244) 38 mmHg 35-45 PO2 ARTERIAL (BEAKER) (test czxq=096) 424 mmHg 80-90 O2 SATURATION ARTERIAL (BEAKER) (test kmih=436) 99.8 % 96.0-97.0 HCO3 ARTERIAL (BEAKER) (test kmky=403) 24 mmol/L 21-29 BASE EXCESS ARTERIAL (BEAKER) (test bizc=577) -1.1 mmol/L -2.0-3.0 PATIENT TEMPERATURE (BEAKER) (test qnwv=5086) 35.3 C FIO2 (BEAKER) (test bhmk=7495) 95.0 % GLUCOSE-STAT [id number] 08:42:00* Test Item Value Reference Range Comments GLUCOSE RANDOM (BEAKER) (test qtlv=658) 70 mg/dL 70-110 SODIUM NA-STAT [id number] 08:42:00* Test Item Value Reference Range Comments SODIUM (BEAKER) (test zqfe=651) 137 meq/L 135-148 POTASSIUM-STAT [id number] 08:42:00* Test Item Value Reference Range Comments POTASSIUM (BEAKER) (test fpfx=435) 3.5 meq/L 3.6-5.5 POCT-GLUCOSE [id number] 06:26:00* Test Item Value Reference Range Comments POC-GLUCOSE METER (BEAKER) (test qray=2054) 79 mg/dL 70-[address] [facility] [address] [facility] [address] URINE [id number] 15:56:00* Test Item Value Reference Range Comments CULTURE (BEAKER) (test wasc=7046) 50-59,000 col/mL skin sravani URINALYSIS W/ [id number] 14:53:00* Test Item Value Reference Range Comments COLOR (BEAKER) (test wilp=220) Light Yellow CLARITY (BEAKER) (test aivx=904) Clear SPECIFIC GRAVITY UA (BEAKER) (test zmap=014) 1.009 1.001-1.035 PH UA (BEAKER) (test houq=184) 6.0 5.0-8.0 PROTEIN UA (BEAKER) (test xplg=032) Negative Negative GLUCOSE UA (BEAKER) (test gfen=337) 300 mg/dL Negative KETONES UA (BEAKER) (test lqfv=050) Negative Negative BILIRUBIN UA (BEAKER) (test fset=750) Negative Negative BLOOD UA (BEAKER) (test mlgb=358) Negative Negative NITRITE UA (BEAKER) (test fdle=559) Negative Negative LEUKOCYTE ESTERASE UA (BEAKER) (test eyai=369) Negative Negative UROBILINOGEN UA (BEAKER) (test ygws=892) 0.2 mg/dL 0.2-1.0 RBC UA (BEAKER) (test homv=425) < /HPF WBC UA (BEAKER) (test gjga=527) 0 /HPF SQUAMOUS EPITHELIAL (BEAKER) (test cytf=785) 1 /HPF HYALINE CASTS (BEAKER) (test vgpd=733) 4 /LPF SOURCE(BEAKER) (test qrdq=5205) COMPREHENSIVE METABOLIC [id number] 12:53:00* Test Item Value Reference Range Comments TOTAL PROTEIN (BEAKER) (test ojzo=130) 7.5 gm/dL 6.0-8.3 Specimen slightly hemolyzed ALBUMIN (BEAKER) (test wzmw=7670) 4.4 g/dL 3.5-5.0 Specimen slightly hemolyzed ALKALINE PHOSPHATASE (BEAKER) (test vrra=669) 115 U/L 40-150 BILIRUBIN TOTAL (BEAKER) (test vegx=290) 0.5 mg/dL 0.2-1.2 Specimen slightly hemolyzed SODIUM (BEAKER) (test gtmc=561) 137 meq/L 136-145 POTASSIUM (BEAKER) (test jtqf=275) 5.0 meq/L 3.5-5.1 Specimen slightly hemolyzed CHLORIDE (BEAKER) (test aabc=966) 101 meq/L 98-107 CO2 (BEAKER) (test grrv=522) 26 meq/L 22-29 BLOOD UREA NITROGEN (BEAKER) (test gdfy=229) 20 mg/dL 7-21 CREATININE (BEAKER) (test gpul=600) 1.51 mg/dL 0.57-1.25 Specimen slightly hemolyzed GLUCOSE RANDOM (BEAKER) (test wbot=412) 214 mg/dL 70-105 CALCIUM (BEAKER) (test opzt=452) 9.6 mg/dL 8.4-10.2 AST (SGOT) (BEAKER) (test cwgt=948) 23 U/L 5-34 Specimen slightly hemolyzed ALT (SGPT) (BEAKER) (test enjn=647) 23 U/L 6-55 Specimen slightly hemolyzed EGFR (BEAKER) (test sgxs=2429) 44 mL/min/1.73 sq m ESTIMATED GFR IS NOT ACCURATE CREATININE CLEARANCE IN PREDICTING GLOMERULAR FILTRATION RATE. ESTIMATED GFR IS NOT APPLICABLE FOR DIALYSIS PATIENTS. PROTHROMBIN TIME/[id number] 12:29:00* Test Item Value Reference Range Comments PROTIME (BEAKER) (test gygr=908) 14.1 seconds 11.7-14.7 INR (BEAKER) (test mhdq=128) 1.1 <=5.9 RECOMMENDED COUMADIN/WARFARIN INR THERAPY RANGESSTANDARD DOSE: 2.0 - 3.0 Inclu chen: PROPHYLAXIS for venous thrombosis, systemic embolization; TREATMENT for linda ous thrombosis and/or pulmonary embolus.HIGH RISK: Target INR is 2.5-3.5 for pat ients with mechanical heart valves.[id number] 12:29:00* Test Item Value Reference Range Comments PARTIAL THROMBOPLASTIN TIME (BEAKER) (test fjxy=473) 27.3 seconds 22.5-36.0 CBC W/PLT COUNT & AUTO [id number] 12:19:00* Test Item Value Reference Range Comments WHITE BLOOD CELL COUNT (BEAKER) (test dpol=175) 6.5 K/ L 3.5-10.5 RED BLOOD CELL COUNT (BEAKER) (test hrle=644) 5.26 M/ L 4.63-6.08 HEMOGLOBIN (BEAKER) (test jzfi=819) 15.8 GM/DL 13.7-17.5 HEMATOCRIT (BEAKER) (test vvbx=980) 49.2 % 40.1-51.0 MEAN CORPUSCULAR VOLUME (BEAKER) (test hmoh=972) 93.5 fL 79.0-92.2 MEAN CORPUSCULAR HEMOGLOBIN (BEAKER) (test fvwi=955) 30.0 pg 25.7-32.2 MEAN CORPUSCULAR HEMOGLOBIN CONC (BEAKER) (test yudo=563) 32.1 GM/DL 32.3-36.5 RED CELL DISTRIBUTION WIDTH (BEAKER) (test uibw=985) 13.0 % 11.6-14.4 PLATELET COUNT (BEAKER) (test hwyd=128) 262 K/CU MM 150-450 MEAN PLATELET VOLUME (BEAKER) (test mqia=629) 11.2 fL 9.4-12.4 NUCLEATED RED BLOOD CELLS (BEAKER) (test qyxk=484) 0 /100 WBC 0-0 NEUTROPHILS RELATIVE PERCENT (BEAKER) (test yzqm=321) 62 % LYMPHOCYTES RELATIVE PERCENT (BEAKER) (test iauv=673) 24 % MONOCYTES RELATIVE PERCENT (BEAKER) (test ilpk=493) 12 % EOSINOPHILS RELATIVE PERCENT (BEAKER) (test icfy=009) 2 % BASOPHILS RELATIVE PERCENT (BEAKER) (test jfsn=038) 0 % NEUTROPHILS ABSOLUTE COUNT (BEAKER) (test jjei=256) 3.99 K/ L 1.78-5.38 LYMPHOCYTES ABSOLUTE COUNT (BEAKER) (test iujr=681) 1.52 K/ L 1.32-3.57 MONOCYTES ABSOLUTE COUNT (BEAKER) (test oyjf=772) 0.80 K/ L 0.30-0.82 EOSINOPHILS ABSOLUTE COUNT (BEAKER) (test lgwc=667) 0.12 K/ L 0.04-0.54 BASOPHILS ABSOLUTE COUNT (BEAKER) (test ljhg=182) 0.02 K/ L 0.01-0.08 IMMATURE GRANULOCYTES-RELATIVE PERCENT (BEAKER) (test foyi=1465) 1 % 0-1 CHEST SINGLE (PORTABLE) [facility] [address] [place] [address] Patient Name: KATHI GARCIA MR #: [id number] : 1935 Age/Sex: 81/M Req #: [id number] Adm Physician: Ordered by: UMM DEUTSCH MD Report #: [id number] Location: ER Room/Bed: Procedure: [id number] DX/CHEST SINGLE (PORTABLE) Exam D ate: 01/06/17 Exam Time: 1430 REPORT STATUS: Si gned PROCEDURE: CHEST SINGLE (PORTABLE) TECHNIQUE: Portable AP chest INDICATION: Hypoglycemia COMPARISON: None. FINDINGS: Lungs are karlene ar and symmetrically inflated. No pleural effusions. Normal heart size and me diastinal contour. Mild aortic arch calcification. Intact skeleton. CONCLUSION: No acute abnormality. Dictated by: Vance white M.D. on 01/06/2017 at 14:57 Electronically approved by: Vance Wilson M.D. on 01/06/2017 at 14:57 Dictated By: VANCE WILLIAMSON MD 56 Transcribed By: MADELYN on 01/06/171456 COPY TO: UMM DEUTSCH MD
[2018-02-17] MEDS ORDERED: CLONIDINE HCL 0.2 MG TAB PO ONE (22:00)
[2018-02-17] MEDS ORDERED: HYDRALAZINE HCL 25 MG TAB PO ONE (22:45)
[2018-02-18] MEDS ORDERED: HYDRALAZINE HCL 20 MG/ML VIAL IV STA (00:51)
[2018-02-18 01:01] LABS: BASOPHILS % 0.5 % (0.0-1.0); EOSINOPHILS # (AUTO) 0.2 (0.0-0.4); HEMATOCRIT 44.7 % (38.2-49.6); HEMOGLOBIN 14.9 g/dL (14.0-18.0); LYMPHOCYTES # (AUTO) 2.3 (1.0-3.2); LYMPHOCYTES % 26.1 % (18.0-39.1); MEAN CORPUSCULAR HEMOGLOBIN 31.6 pg (28-32); MEAN CORPUSCULAR HGB CONC 33.3 g/dL (31-35); MEAN CORPUSCULAR VOLUME 94.7 fL (81-99); MONOCYTES # (AUTO) 0.8 (0.2-0.8); MONOCYTES % 8.8 % (4.4-11.3); NEUTROPHILS # (AUTO) 5.5 (2.1-6.9); NEUTROPHILS % 62.1 % (38.7-80.0); PLATELET COUNT 255 x10e3/uL (140-360); RED BLOOD COUNT 4.72 x10e6/uL (4.3-5.7); RED CELL DISTRIBUTION WIDTH 12.7 % (11.7-14.4)
[2018-02-18 01:21] LABS: ALBUMIN/GLOBULIN RATIO 1.2 (0.8-2.0); ANION GAP 15.9 mmol/L (8-16); CALCIUM 9.8 mg/dL (8.4-10.2); CREATININE, SERUM 1.92 mg/dL (0.72-1.25); POTASSIUM 4.9 mmol/L (3.5-5.1)
[2018-02-18 01:32] LABS: CREATINE KINASE MB 5.1 ng/mL (0-5.0)
[2018-02-18 01:43] VITALS: BP 159/76
== END 2018-02-18 01:45 | disposition home or self-care (01) ==
LOC: ER 21:37
DX: I10 Essential (primary) hypertension (principal); E11.9 Type 2 diabetes mellitus without complications; Z79.4 Long term (current) use of insulin
CPT/HCPCS: 36415; 80053; 82550; 82553; 84484; 85025; 93005; 99283; J0360